=== PATIENT | male | born 1960 | race Caucasian/White ===

== ENCOUNTER 2021-03-07 05:16 | Observation (INO) | payer MEDICAID ==
[~2021-03-07] VITALS: Ht 182.9 cm; Wt 89.5 kg
[2021-03-07] VITALS (8 sets, daily range): BP systolic 115–163; BP diastolic 61–91; Ht 182.9 cm; Wt 89.5 kg
--- NOTE | ~2021-03-07 | OP ---
PATIENT NAME: CEDRIC PA MEDICAL RECORD: [id number] :56 LOCATION:[id number] ADMISSION DATE:03/07/21 SURGEON: MAGALIE CURRY MD DATE OF OPERATION: 03/07/2021 PREOPERATIVE DIAGNOSES: Cervical myelopathy with spinal cord compression C3-C4 secondary to disc herniation and osteophyte formation at C3-C4. POSTOPERATIVE DIAGNOSES: Cervical myelopathy with spinal cord compression C3-C4 secondary to disc herniation and osteophyte formation at C3-C4. PROCEDURE: Anterior cervical discectomy and fusion at C3-C4 with removal of osteophytes, PEEK interbody cage at C3-C4, separate anterior cervical plate and screws at C3-C4, [employer], Phyllis bone allograft stem cells. SURGEON: Magalie Curry MD DESCRIPTION OF TECHNIQUE: After induction of general endotracheal anesthesia, the patient was positioned supine on the operating table. Neck was prepped and draped in the usual sterile fashion. Fluoroscopic x-ray and freer localized the C3-C4 interspace. After infiltration with 1:100,000 epinephrine with 1% lidocaine, I carried out a transverse skin incision with a sharp dissection. The platysma was divided with sharp dissection as well. I proceeded in an avascular plane medial to the carotid sheath. The 3-4 interspace was identified with fluoroscopic x-ray and a spinal needle. A self-retaining retractor was placed in the deep layers of the wound. [place] distracting pins were placed in the bodies of C3 and C4. Levels confirmed with fluoroscopic x-ray. A #11 blade was used to incise the disc space. Disc material was removed with pituitary rongeurs and curettes. Osteophytes were drilled away posteriorly under microscopic illumination. With a [employer] drill, the posterior longitudinal ligament was removed with the clot and rongeurs. Following this, the dura was decompressed as well. A peek interbody cage was placed in the disc space under distraction. Prior to this, it was filled with Phyllis bone allograft with bone stem cells. Next, a [employer] anterior cervical plate and screws was used to span the C3-C4 interspace. The locking cams were tightened down over the screw heads. Good position of the hardware was confirmed with fluoroscopic x-ray. Meticulous hemostasis was maintained throughout the wound. Wound was irrigated with copious amounts of Ancef irrigant solution. The platysma and subdermal layer closed with interrupted 4-0 Vicryl suture. The skin was reapproximated with Steri-Strips and benzoin. A sterile dressing was applied to the wound. The patient was awakened in good condition and taken to recovery. All counts were reported as correct. ESTIMATED BLOOD LOSS: Minimal. TRANSINT:[id number] Voice Confirmation ID: [id number] DOCUMENT ID: [id number] OPERATIVE REPORT [id number] CEDRIC PA JOHN MD CC: [id number] DICTATION DATE: 03/12/21 1132 CIRCUIT BOARD DRAFTER: 03/12/21 1343 DIS IN 03/08/21 [facility] [address] [place] [address]
[~2021-03-07 05:16] MED LIST: CATAPRES0.1 MG PO; FLOMAX0.4 MG PO; HYDROCODON-ACE1 EA10 PO; LISINOPRIL10 MG PO; METOPROLOL TART50 MG PO; NEURONTIN800 MG PO; NICODERM CQ1 EAC2 TRANSDERM; NORMODYNE / TR200 MG PO; PREDNISONE20 MG PO; PREVACID30 MG PO; ULTRAM50 MG PO
[2021-03-07] MEDS ORDERED: ACETAMINOPHEN325 MG PO (05:20)
[2021-03-07] MEDS ORDERED: NORVASC2.5 MG PO (05:21)
[2021-03-07] MEDS ORDERED: ZYRTEC10 MG PO (05:22)
[2021-03-07] MEDS ORDERED: CYMBALTA60 MG PO (05:23)
[2021-03-07] MEDS ORDERED: DIPHEDRYL25 MG PO (05:25)
[2021-03-07] MEDS ORDERED: BENADRYL ITCH R14 ML TOPICAL (05:27)
[2021-03-07] MEDS ORDERED: COLACE100 MG PO (05:28)
[2021-03-07] MEDS ORDERED: MELATONIN 3 MG1 TAB PO (05:29)
[2021-03-07] MEDS ORDERED: GLUCOPHAGE500 MG PO (05:30)
[2021-03-07] MEDS ORDERED: OMEPRAZOLE20 M1 PO (05:32)
[2021-03-07] MEDS ORDERED: FLOMAX0.4 MG PO (05:33)
[2021-03-07] MEDS ORDERED: ZANAFLEX2 M1 PO (05:35)
[2021-03-07] MEDS ORDERED: VOLTAREN100 GM TOPICAL (05:35)
[2021-03-07 06:16] LABS: BASOPHILS 1.4 % (0-2); EOSINOPHILS 9.3 % (0-7); HEMATOCRIT 32.3 % (42.0-54.0); LYMPHOCYTES 31.7 % (15-50); MCH 23.2 pg (26.0-34.0); MCHC 30.9 g/dL (31.0-37.0); MCV 75.1 fL (80.0-100.0); MEAN PLATELET VOLUME 6.9 fL (7.4-10.4); MONOCYTES 15.8 % (2-11); NEUTROPHILS 41.8 % (40-80); RDW 16.9 % (11.5-14.5); WBC 4.6 10x3/uL (4.8-10.8)
[2021-03-07 06:25] LABS: ANION GAP 13.5 mmol/L (8-16); CALCIUM 9.7 mg/dL (8.5-10.1); CARBON DIOXIDE 26.9 mmol/L (21.0-32.0); CREATININE - SERUM 1.4 mg/dL (0.6-1.3); POTASSIUM - SERUM 4.4 mmol/L (3.5-5.1)
[2021-03-07 06:28] LABS: PLATELET COUNT 279 10x3/uL (130-400)
--- NOTE | 2021-03-07 10:05 | NUR ---
PT STATING PAIN IS NOT GETTING ANY BETTER AFTER 1 OF DIL. AND 25 OF DEM. STATES NECK FEELS LIKE A SHARP PAIN.
--- NOTE | 2021-03-07 10:08 | NUR ---
PT VERBALIZED PAIN 05/21. EDUCATED ON PAIN MEDICATION AND ITS EFFECTS ACCORDING TO AGE AND RISK OF OVERSEDATION
--- NOTE | 2021-03-07 11:37 | NUR ---
PT FROM PACU PER BED. HOB UP AT 45 DEGREES-DRESSING NOTED TO RIGHT SIDE OF NECK CLEAN DRY AND INTACT. OXYGEN AT 2L PER NC. LUNG SOUNDS CLEAR BILAT. 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 UNABLE TO LIFT RIGHT LEG OFF BED BUT IS ABLE TO MOVE LEFT LEG SOME. NO REDDNESS NOTED TO HEELS. NO REDDNESS NOTED TO BUTTOCK.IV NOTED TO LEFT HAND. NO REDDNESS OR SWELLING NOTED. CALL LIGHT IN REACH. SCDS APPLIED BILAT. FALL ALARM ACTIVATED ON BED
--- NOTE | 2021-03-07 13:45 | NUR ---
PATIENT HAS HEAD OF BED AT 55 DEGREES. WANTS IT LOWER. I EXPLAINED THAT HE CAN NOT GO LOWER THAN 45 DEGREES PER REPORT. LOWERED TO 45 DRGREES. NO OTHER NEEDS VOICED. CALL LIGHT IN LAP.
--- NOTE | 2021-03-07 20:00 | NUR ---
PT REQUESTED AND GIVEN MOPRHINE AND ROBAXIN AT THIS TIME. STATES HIS NEUROPATHY IN HIS LEGS IS HURTING HIM MORE THAN HIS NECK AND BACK AT THIS TIME. HOB ELEVATED 45 DEGREES. DRESSING TO RIGHT SIDE OF NECK CDI. PT USING ICE PACK AT SITE. PROVIDED PT WITH MORE ICE CHIPS UPON REQUEST. DENIES OTHER NEEDS. BED ALARM ON, CL IN REACH
[2021-03-08] VITALS: BP 165/74
[2021-03-08 04:00] VITALS: BP 112/76
--- NOTE | 2021-03-08 07:42 | NUR ---
ALERT AND ORIENTED. DENIES NEEDS. BED LOW. CALL ARIZA AND PERSONAL ITEMS IN REACH. WILL CONTINUE TO MONITOR.
[2021-03-08 08:23] VITALS: BP 181/103
--- NOTE | 2021-03-08 08:39 | NUR ---
MD MADE AWARE OF PATIENT'S BP 195/98. NEW ORDERS GIVEN FOR PATIENT'S HOME BP MEDS.
[2021-03-08] MEDS ORDERED: HYDROCODON-ACE1 EA10 PO (08:48)
[2021-03-08] MEDS ORDERED: MEDROL DOSE PACK4 MG PO (08:48)
--- NOTE | 2021-03-08 11:18 | NUR ---
CALLED REPORT TO AZAM OLMOS AT THE [facility]. DENIES FURTHER QUESTIONS. AMBULANCE EN ROUTE TO GET PATIENT.
--- NOTE | 2021-03-08 11:33 | NUR ---
DC EDUCATION PROVIDED BOTH WRITTEN AND VERBAL. VERBALIZED UNDERSTANDING. DENIES FURTHER QUESTIONS. IV REMOVED FROM LEFT HAND WITH TIP INTACT. WAITING RIDE.
[2021-03-08 12:19] VITALS: BP 177/98
--- NOTE | 2021-03-08 14:57 | NUR ---
PATIENT DC BACK TO [facility] WITH ALL BELONGINGS. WEARING NECK COLLAR AT TIME OF TRANSPORT.
== END 2021-03-08 14:58 | disposition home or self-care (01) ==
LOC: D.OPS 05:16 → D.MS 10:23 → OBSVTIME 10:23 → D.MS 03-08 14:58
PROVIDERS: Anesthesiology; ADMIT Neurological Surgery; ATTEND Neurological Surgery
DX: M50.01 Cervical disc disorder with myelopathy, high cervical region (principal); I50.9 Heart failure, unspecified; R51.9 Headache, unspecified; E11.40 Type 2 diabetes mellitus with diabetic neuropathy, unspecified; G95.9 Disease of spinal cord, unspecified; G82.50 Quadriplegia, unspecified; R53.1 Weakness